=== PATIENT | male | born 1985 | race Caucasian/White ===

== ENCOUNTER → 2019-02-20 | Outpatient (CLI) | payer BC ==
[~2019-02-20] MED LIST: LISINOPRIL40 MG PO
[2019-02-20 12:57] LABS: HEMOGLOBIN 17.9 g/dL (13.5-18.0)
== END ==
LOC: LAB 12:46
PROVIDERS: Internal Medicine Medical Oncology
DX: D75.1 Secondary polycythemia (principal)

== ENCOUNTER → 2019-02-20 | Outpatient (CLI) | payer BC ==
[~2019-02-20] VITALS: Ht 185.4 cm; Wt 122.7 kg
[2019-02-20 14:13] VITALS: BP 173/109
[2019-02-20 15:47] VITALS: BP 159/102
== END ==
LOC: AMSURD 13:54
DX: D75.1 Secondary polycythemia (principal)
CPT/HCPCS: J7030

== ENCOUNTER → 2019-02-27 | Outpatient (CLI) | payer BC ==
[~2019-02-27] VITALS: Ht 185.4 cm; Wt 122.7 kg
[2019-02-27 13:17] VITALS: BP 127/90
[2019-02-27 14:19] VITALS: BP 144/72
== END ==
LOC: AMSURD 12:26 → LAB 12:26
DX: D75.1 Secondary polycythemia (principal)
CPT/HCPCS: J7040

== ENCOUNTER → 2019-06-19 | Outpatient (CLI) | payer BC ==
[2019-02-27 14:19] VITALS: BP 144/72
[2019-06-19 08:46] LABS: HEMATOCRIT 53.4 % (42.0-52.0); HEMOGLOBIN 18.4 g/dL (13.5-18.0)
== END ==
LOC: LAB 08:32
PROVIDERS: Internal Medicine Medical Oncology
DX: D75.1 Secondary polycythemia (principal)

== ENCOUNTER → 2019-07-03 | Outpatient (CLI) | payer BC ==
[2019-02-27 14:19] VITALS: BP 144/72
[2019-07-03 08:39] LABS: HEMATOCRIT 51.3 % (42.0-52.0); HEMOGLOBIN 17.8 g/dL (13.5-18.0)
== END ==
LOC: LAB 08:28
PROVIDERS: Internal Medicine Medical Oncology
DX: D75.1 Secondary polycythemia (principal)

== ENCOUNTER → 2019-09-04 | Outpatient (CLI) | payer BC ==
[2019-02-27 14:19] VITALS: BP 144/72
[2019-09-04 08:30] LABS: EOS # 0.2 (0.04-0.40); EOS % 2.2 % (0.0-4.0); HEMATOCRIT 54.1 % (42.0-52.0); HEMOGLOBIN 18.3 g/dL (13.5-18.0); LYMPH# 2.6 (1.50-4.00); MEAN CELL VOLUME 86 fl (78-100); MEAN CORPUSCULAR HEMOGLOBIN 29 pg (27-31); MEAN CORPUSCULAR HGB CONC 34 g/dL (33-37); MEAN PLATELET VOLUME 9.8 fl (7.4-10.4); MONO # 0.9 (0.20-0.80); NEU # 5.7 (1.40-6.50); PLATELET COUNT 236 K/mm3 (130-400); RED BLOOD COUNT 6.29 M/mm3 (4.20-5.60); RED CELL DISTRIBUTION WIDTH 12.9 % (11.5-14.5); WHITE BLOOD COUNT 9.6 K/mm3 (4.8-10.8)
== END ==
LOC: LAB 08:21
PROVIDERS: Internal Medicine Medical Oncology
DX: D75.1 Secondary polycythemia (principal)

== ENCOUNTER → 2019-10-23 | Outpatient (CLI) | payer BC ==
[2019-02-27 14:19] VITALS: BP 144/72
[2019-10-23 08:19] LABS: EOS # 0.2 (0.04-0.40); EOS % 2.2 % (0.0-4.0); HEMATOCRIT 48.7 % (42.0-52.0); HEMOGLOBIN 16.2 g/dL (13.5-18.0); LYMPH# 1.7 (1.50-4.00); MEAN CELL VOLUME 87 fl (78-100); MEAN CORPUSCULAR HEMOGLOBIN 29 pg (27-31); MEAN CORPUSCULAR HGB CONC 33 g/dL (33-37); MEAN PLATELET VOLUME 9.5 fl (7.4-10.4); MONO # 0.7 (0.20-0.80); NEU # 4.4 (1.40-6.50); PLATELET COUNT 259 K/mm3 (130-400); RED BLOOD COUNT 5.62 M/mm3 (4.20-5.60); RED CELL DISTRIBUTION WIDTH 13.3 % (11.5-14.5); WHITE BLOOD COUNT 6.9 K/mm3 (4.8-10.8)
== END ==
LOC: LAB 08:06
PROVIDERS: Internal Medicine Medical Oncology
DX: D75.1 Secondary polycythemia (principal)

== ENCOUNTER → 2019-10-30 | Outpatient (CLI) | payer BC ==
[2019-02-27 14:19] VITALS: BP 144/72
[2019-10-30 08:33] LABS: EOS # 0.2 (0.04-0.40); EOS % 2.3 % (0.0-4.0); HEMATOCRIT 49.8 % (42.0-52.0); HEMOGLOBIN 16.6 g/dL (13.5-18.0); LYMPH# 2.3 (1.50-4.00); MEAN CELL VOLUME 85 fl (78-100); MEAN CORPUSCULAR HEMOGLOBIN 28 pg (27-31); MEAN CORPUSCULAR HGB CONC 33 g/dL (33-37); MEAN PLATELET VOLUME 9.9 fl (7.4-10.4); NEU # 5.6 (1.40-6.50); PLATELET COUNT 280 K/mm3 (130-400); RED BLOOD COUNT 5.88 M/mm3 (4.20-5.60); WHITE BLOOD COUNT 9.2 K/mm3 (4.8-10.8)
== END ==
LOC: LAB 08:09
PROVIDERS: Internal Medicine Medical Oncology
DX: D75.1 Secondary polycythemia (principal)

== ENCOUNTER → 2019-11-06 | Outpatient (CLI) | payer BC ==
[2019-02-27 14:19] VITALS: BP 144/72
[2019-11-06 08:47] LABS: EOS # 0.2 (0.04-0.40); EOS % 2.5 % (0.0-4.0); HEMATOCRIT 44.7 % (42.0-52.0); HEMOGLOBIN 14.7 g/dL (13.5-18.0); LYMPH# 2.3 (1.50-4.00); MEAN CELL VOLUME 84 fl (78-100); MEAN CORPUSCULAR HEMOGLOBIN 28 pg (27-31); MEAN CORPUSCULAR HGB CONC 33 g/dL (33-37); MEAN PLATELET VOLUME 10.2 fl (7.4-10.4); MONO # 0.8 (0.20-0.80); NEU # 3.9 (1.40-6.50); PLATELET COUNT 275 K/mm3 (130-400); RED CELL DISTRIBUTION WIDTH 12.8 % (11.5-14.5); WHITE BLOOD COUNT 7.3 K/mm3 (4.8-10.8)
== END ==
LOC: LAB 07:59
PROVIDERS: Internal Medicine Medical Oncology
DX: D75.1 Secondary polycythemia (principal)

== ENCOUNTER → 2019-11-13 | Outpatient (CLI) | payer BC ==
[2019-02-27 14:19] VITALS: BP 144/72
[2019-11-13 08:09] LABS: EOS # 0.3 (0.04-0.40); EOS % 2.8 % (0.0-4.0); HEMATOCRIT 44.4 % (42.0-52.0); HEMOGLOBIN 14.6 g/dL (13.5-18.0); LYMPH# 2.2 (1.50-4.00); MEAN CELL VOLUME 83 fl (78-100); MEAN CORPUSCULAR HEMOGLOBIN 27 pg (27-31); MEAN CORPUSCULAR HGB CONC 33 g/dL (33-37); MEAN PLATELET VOLUME 9.4 fl (7.4-10.4); MONO # 0.9 (0.20-0.80); NEU # 5.4 (1.40-6.50); PLATELET COUNT 311 K/mm3 (130-400); RED BLOOD COUNT 5.34 M/mm3 (4.20-5.60); RED CELL DISTRIBUTION WIDTH 12.7 % (11.5-14.5); WHITE BLOOD COUNT 8.9 K/mm3 (4.8-10.8)
== END ==
LOC: LAB 08:00
PROVIDERS: Internal Medicine Medical Oncology
DX: D75.1 Secondary polycythemia (principal)

== ENCOUNTER → 2020-02-12 | Outpatient (CLI) | payer BC ==
[2019-02-27 14:19] VITALS: BP 144/72
[2020-02-12 10:50] LABS: EOS # 0.2 (0.04-0.40); EOS % 2.1 % (0.0-4.0); HEMATOCRIT 48.7 % (42.0-52.0); HEMOGLOBIN 15.4 g/dL (13.5-18.0); LYMPH# 2.2 (1.50-4.00); MEAN CELL VOLUME 72 fl (78-100); MEAN CORPUSCULAR HEMOGLOBIN 23 pg (27-31); MEAN CORPUSCULAR HGB CONC 32 g/dL (33-37); MEAN PLATELET VOLUME 9.7 fl (7.4-10.4); MONO # 0.9 (0.20-0.80); NEU # 6.1 (1.40-6.50); PLATELET COUNT 271 K/mm3 (130-400); RED BLOOD COUNT 6.75 M/mm3 (4.20-5.60); RED CELL DISTRIBUTION WIDTH 17.9 % (11.5-14.5); WHITE BLOOD COUNT 9.4 K/mm3 (4.8-10.8)
== END ==
LOC: LAB 10:41
PROVIDERS: Internal Medicine Medical Oncology
DX: Z86.2 Personal history of diseases of the blood and blood-forming organs and certain disorders involving the immune mechanism (principal)

== ENCOUNTER → 2020-03-25 | Outpatient (CLI) | payer BC ==
[2019-02-27 14:19] VITALS: BP 144/72
[2020-03-25 10:07] LABS: HEMATOCRIT 45.5 % (42.0-52.0); HEMOGLOBIN 14.7 g/dL (13.5-18.0)
== END ==
LOC: LAB 09:55
PROVIDERS: Internal Medicine Medical Oncology
DX: D75.1 Secondary polycythemia (principal)

== ENCOUNTER → 2020-04-13 | Outpatient (CLI) | payer BC ==
[2019-02-27 14:19] VITALS: BP 144/72
[2020-04-13 11:26] LABS: EOS # 0.2 (0.04-0.40); EOS % 1.6 % (0.0-4.0); HEMATOCRIT 45.6 % (42.0-52.0); HEMOGLOBIN 14.3 g/dL (13.5-18.0); LYMPH# 2.3 (1.50-4.00); MEAN CELL VOLUME 75 fl (78-100); MEAN CORPUSCULAR HEMOGLOBIN 23 pg (27-31); MEAN CORPUSCULAR HGB CONC 31 g/dL (33-37); MEAN PLATELET VOLUME 9.4 fl (7.4-10.4); MONO # 0.9 (0.20-0.80); PLATELET COUNT 313 K/mm3 (130-400); RED BLOOD COUNT 6.12 M/mm3 (4.20-5.60); RED CELL DISTRIBUTION WIDTH 16.8 % (11.5-14.5); WHITE BLOOD COUNT 9.4 K/mm3 (4.8-10.8)
== END ==
LOC: LAB 11:18
PROVIDERS: Internal Medicine Medical Oncology
DX: Z86.2 Personal history of diseases of the blood and blood-forming organs and certain disorders involving the immune mechanism (principal)

== ENCOUNTER → 2020-06-07 | Outpatient (CLI) | payer BC ==
[2019-02-27 14:19] VITALS: BP 144/72
[2020-06-07 12:50] LABS: HEMATOCRIT 49.7 % (42.0-52.0); MEAN CELL VOLUME 86 fl (78-100); MEAN CORPUSCULAR HEMOGLOBIN 28 pg (27-31); MEAN CORPUSCULAR HGB CONC 32 g/dL (33-37); PLATELET COUNT 331 K/mm3 (130-400); RED BLOOD COUNT 5.78 M/mm3 (4.20-5.60); RED CELL DISTRIBUTION WIDTH 13.4 % (11.5-14.5)
[2020-06-07 12:51] LABS: WHITE BLOOD COUNT 21.9 K/mm3 (4.8-10.8)
[2020-06-07 13:16] LABS: LYMPHOCYTE 11 % (20-51); NEUTROPHILS 83 % (42-75)
[2020-06-07 13:17] LABS: MONOCYTE 5 % (3-10)
== END ==
LOC: LAB 12:38
PROVIDERS: Internal Medicine Medical Oncology
DX: D75.1 Secondary polycythemia (principal)